=== PATIENT | male | born 1970 | race Two or more races ===

== ENCOUNTER 2017-04-14 04:58 | Emergency (ER) | payer SELFPAY ==
[~2017-04-14] VITALS: Ht 188 cm; Wt 90.7 kg
[2017-04-14 04:33] VITALS: BP 130/80
[~2017-04-14 04:58] MED LIST: NKM
--- NOTE | 2017-04-14 05:18 | Emergency Room Report ---
History of Present Illness General Chief Complaint: Dizziness Source: Patient Present Illness HPI Is a 46-year-old male who has history of gastric bypass in the past. He presents with chief complaint of dizziness and dry mouth. Onset for the last 2 weeks. No fever chills but no nausea no vomiting. Said his been drinking a lot. Denies any other complaint. Call 911 from a pay phone. Allergies: Coded Allergies: No Known Allergies (Unverified , 04/14/17) Patient History Past Medical History: see triage record, old chart reviewed Past Surgical History: other Pertinent Family History: none Social History: Reports: smoking, alcohol use Immunizations: other Reviewed Nursing Documentation: PMH: Agreed, PSxH: Agreed Nursing Documentation-PMH Past Medical History: No History, Except For Review of Systems Eye: Denies: eye pain, blurred vision ENT: Denies: ear pain, nose congestion, throat swelling Respiratory: Denies: cough, shortness of breath Cardiovascular: Denies: chest pain, palpitations Gastrointestinal: Denies: abdominal pain, diarrhea, nausea, vomiting Musculoskeletal: Denies: back pain, joint pain Skin: Denies: rash Neurological: Reports: dizziness, Denies: headache, numbness Endocrine: Denies: increased thirst, increased urine Hematologic/Lymphatic: Denies: easy bruising All Other Systems: negative except mentioned in HPI Physical Exam Vital Signs Date Time Temp Pulse Resp B/P (MAP) Pulse Ox O2 Delivery O2 Flow Rate FiO2 04/14/17 04:29 97.9 110 16 130/80 97 Room Air vitals with mild tachycardia Sp02 EP Interpretation: reviewed, normal General Appearance: well appearing, no apparent distress, alert Head: normocephalic, atraumatic Eyes: bilateral eye PERRL, bilateral eye EOMI ENT: hearing grossly normal, normal pharynx Neck: full range of motion, supple, no meningismus Respiratory: chest non-tender, lungs clear, normal breath sounds Cardiovascular #1: regular rate, rhythm - Heart rate 90, no murmur Gastrointestinal: normal bowel sounds, non tender, no mass, no organomegaly, no bruit, non-distended Musculoskeletal: back normal, gait/station normal, normal range of motion Psychiatric: mood/affect normal Skin: warm/dry Medical Decision Making Diagnostic Impression: Primary Impression: Dizziness of unknown cause ER Course Isn't complain any dizziness and dry mouth. He is walking around without any difficulty. He ate and drink here without a problem. I see no evidence of arrhythmia. Seen on said dehydration. We'll discharge home. Last Vital Signs Date Time Temp Pulse Resp B/P (MAP) Pulse Ox O2 Delivery O2 Flow Rate FiO2 04/14/17 04:33 97.9 110 16 130/80 97 Room Air Status: improved Disposition: HOME, SELF-CARE Condition: Stable Patient Instructions: Dizziness Additional Instructions: Followup with your Dr. in 7 days. Return if symptom worsen. JULIETH STEIN M.D. Apr 14, 2017 05:18
[2017-04-14 05:22] VITALS: BP 130/80
== END 2017-04-14 05:22 | disposition home or self-care (01) ==
LOC: EDBD 04:58 → EMR 05:14
DX: R42 Dizziness and giddiness (principal); F17.200 Nicotine dependence, unspecified, uncomplicated
CPT/HCPCS: 99283